=== PATIENT | male | born 1970 | race Caucasian/White ===

== ENCOUNTER 2022-09-30 21:21 | Inpatient (IN) | payer OTHER, SELFPAY ==
[2022-09-30 21:40] VITALS: BP 157/105; PULSE 75; RESP 22; TEMP 36.3; O2SAT 97; BMI 30.7
--- NOTE | 2022-09-30 23:51 | ED_ITS ---
Documented by User: KELLIE Hill 10/01/22 04:40 HPI - Abdominal Pain General: Chief Complaint: Abdominal Pain Stated Complaint: n/v, abd pain Time Seen by Provider: 09/30/22 23:42 Source: patient Mode of arrival: ambulatory Limitations: no limitations History of Present Illness: Patient presents to the emergency department today accompanied by family for evaluation treatment of generalized abdominal pain, nausea, vomiting, and diarrhea. Patient states he had vomiting and diarrhea which started yesterday but did not have any significant abdominal pains. P atient states that starting today he has had abdominal bloating and increased abdominal pains. Patient has continued to have vomiting and diarrhea which he describes as a liquid stool. Patient has vomited as recently as just prior to being roomed. He is unaware of any fevers. No upper respiratory symptoms of sore throat, cough, or congestion to report. Patient's indicates that they have had some at home with a couple episodes of diarrhea and some with a couple episodes of vomiting but, none as severe as the patient. Patient attempted some food earlier today but states he had vomiting. He tolerates water off and on. Patient reports he still has his gallbladder and his appendix. Associated Symptoms: Reports bloating, diarrhea, nausea and vomiting Review of Systems General: Reports: 10 or more systems reviewed and unremarkable except in HPI and below GI: Reports: abdominal pain, nausea, vomiting, diarrhea and bloating [facility] ED PFSH: Medical History (Updated 10/01/22 @ 15:03 by Gabriel Manuel DO) No pertinent past medical history Surgical History (Updated 10/01/22 @ 12:01 by Horace Beth MD) No pertinent past surgical history Family History (Updated 10/01/22 @ 12:01 by Horace Beth MD) Denies family history of Cancer Social History (Updated 10/01/22 @ 12:01 by Horace Beth MD) Smoking and tobacco status: never smoked Alcohol intake: current Alcohol intake frequency: holidays/special occasions only Substance/Drug Use: never Household members: spouse Physical Exam Const: COMMON NORMALS: patient oriented x3 and alert; apparent distress (Patient is obviously uncomfortable and in pain) HENMT: COMMON NORMALS: normocephalic, atraumatic, hearing grossly normal b ilaterally and moist oral mucous membranes HEAD & SCALP: normocephalic and atraumatic Eye: COMMON NORMALS: Equal, round and reactive pupils present, EOMs intact bilaterally and conjunctivae normal CONJUNCTIVA: Yes conjunctivae normal PUPIL: Yes Equal, round and reactive pupils present Neck/C-Spine: COMMON NORMALS: full ROM and no JVD Lymph: LYMPHATIC: no lymphadenopathy noted Resp: COMMON NORMALS: normal respiratory effort, No retractions, No use of accessory muscles and clear to auscultation bilaterally AUSCULTATION: clear to auscultation bilaterally Cardio: COMMON NORMALS: no JVD, regular rate and regular rhythm RATE: regular rate RHYTHM: regular rhythm GI: OTHER: Patient has minimal to no bowel sounds. Patient's abdomen is extremely bloated. It is firm on palpation and tender in all quadrants and in the periumbilical region. : COMMON NORMALS: Yes no CVA tenderness BLADDER/KIDNEY EXAM: Yes no CVA tenderness Back/Pelvis: COMMON NORMALS: no CVA tenderness, no thoracic nor lumbar tenderness and thoraco-lumbar ROM normal Extremity: COMMON NORMALS: normal to inspection, full ROM and capillary refill normal Neuro: COMMON NORMALS: patient oriented x3 SENSORIUM/ORIENTATION: Yes alert Psych: COMMON NORMALS: mental status grossly normal, Normal thought process present, cooperative, normal affect and activity/motor behavior normal THOU GHT PROCESS: Normal thought process present Skin: COMMON NORMALS: no rashes or lesions noted and no wounds GENERAL SKIN EXAM: no rashes or lesions noted Course Vital Signs: Vital signs: Vital Signs Temperature 98.9 F 10/01/22 11:52 Pulse Rate 103 H 10/01/22 11:52 Respiratory Rate 15 10/01/22 11:52 Blood Pressure 158/94 10/01/22 11:52 Pulse Oximetry 93 10/01/22 11:52 Oxygen Delivery Me thod 10/01/22 08:09 MDM - Abdominal Pain Medical Decision Making Basic labs ordered based off of patient complaints however, immediately after seeing patient at bedside, I did go ahead and order the CT examination. Patient's abdomen is extremely bloated and firm. Patient looks extremely uncomfortable. Lab work is otherwise unremarkable however, CT examination shows concerns for small bowel obstruction. I did discuss with Dr. Manuel and we discussed admission. Patient notified of these findings and told of the pending NG tube placement and admission. We called hospitalist services however, patient has no documented active problems or active home medications and was considered more of a surgical case. I did reach out and speak with general surgery on-call however, he believes the patient could be treated with IV antibiotics and be brought on as a consult. Dr. Manuel has agreed to facilitate the coordination of getting the patient admitted to the proper services at this time. Orders were placed to start ciprofloxacin and Flagyl here in the emergency department. This was at the recommendation of general surgery. At this time, care transition to Dr. Manuel. Differential Diagnosis Likely abdominal pain, acute appendicitis, constipation, diverticulitis, gastroenteritis, pancreatitis and small bowel obstruction Lab Data 09/30/22 23:59 09/30/22 23:59 Labs/Radiology: Radiology Impressions Chest X-Ray 10/01/22 03:24 IMPRESSION: 1. Nasogastric tube, as noted above. 2. Small lung volumes with minimal accentuation of the pulmonary vascularity. No confluent infiltrates in the lungs. Abdomen/Pelvis CT 10/01/22 23:50 IMPRESSION: 1. Multiple dilated small bowel loops measuring up to 3.9 cm with fluid levels consistent with an obstruction, potentially high-grade with a possible transition point in the right abdomen. 2. Cardiomegaly. 3. Small amount of nonspecific fluid in the pelvis. Laboratory Results WBC 11.4 10^3/uL (4.0-10.0) H 09/30/22 23:59 RBC 5.70 10^6/uL (4.1-5.3) H 09/30/22 23:59 Hgb 17.2 g/dL (11.7-16.6) H 09/30/22 23:59 Hct 50.2 % (42.0-52.0) 09/30/22 23:59 MCV 88.1 fl (80-94) 09/30/22 23:59 MCH 30.2 pg (28.0-34.0) 09/30/22 23:59 MCHC 34.3 g/dL (30.0-36.0) 09/30/22 23:59 RDW 13.2 % (12.1-15.1) 09/30/22 23:59 Plt Count 258 10^3/cmm (130-400) 09/30/22 23:59 MPV 10.2 fL (7.4-10.4) 09/30/22 23:59 Neut % (Auto) 81.5 % 09/30/22 23:59 Lymph % (Auto) 10.6 % 09/30/22 23:59 [place] % (Auto) 6.5 % 09/30/22 23:59 Eos % (Auto) 0.2 % 09/30/22 23:59 Baso % (Auto) 0.4 % 09/30/22 23:59 Neut # (Auto) 9.28 10^3/uL (1.8-7.7) H 09/30/22 23:59 Lymph # (Auto) 1.2 10^3/uL (0.8-4.8) 09/30/22 23:59 [place] # (Auto) 0.7 10^3/uL (0.2-0.9) 09/30/22 23:59 Eos # (Auto) 0.0 10^3/uL (0.0-0.8) 09/30/22 23:59 Baso # (Auto) 0.0 10^3/uL (0.0-0.1) 09/30/22 23:59 Nucleated RBC % (auto) 0 % 09/30/22 23:59 Nucleated RBCs # 0.0 /100WBC 09/30/22 23:59 Sodium 133 mmol/L (136-145) L 09/30/22 23:59 Potassium 4.2 mmol/L (3.5-5.1) 09/30/22 23:59 Chloride 96 mmol/L (98-107) L 09/30/22 23:59 Carbon Dioxide 24 mmol/L (22-29) 09/30/22 23:59 Anion Gap 17.2 (5-19) 09/30/22 23:59 BUN 20 mg/dL (6-20) 09/30/22 23:59 Creatinine 0.7 mg/dL (0.7-1.2) 09/30/22 23:59 GFR Calculation 119.9 mL/min (90-130) 09/30/22 23:59 Glucose 156 mg/dL (65-115) H 09/30/22 23:59 Calculated Osmolality 282 mOsm/kg (285-295) L 09/30/22 23:59 Calcium 9.7 mg/dL (8.5-10.5) 09/30/22 23:59 Total Bilirubin 0.4 mg/dL (0.15-1.2) 09/30/22 23:59 AST 18 U/L (0-40) 09/30/22 23:59 ALT 30 U/L (0-41) 09/30/22 23:59 Alkaline Phosphatase 126 U/L (40-130) 09/30/22 23:59 Total Protein 8.5 g/dL (6.6-8.7) 09/30/22 23:59 Albumin 4.8 g/dL (3.5-5.2) 09/30/22 23:59 Globulin 3.7 g/dL (1.3-4.6) 09/30/22 23:59 Lipase 15 U/L (13-60) 09/30/22 23:59 Urine Color Yellow (Yellow) 10/01/22 01:44 Urine Appearance Clear (CLEAR) 10/01/22 01:44 Urine pH 5 (5-7) 10/01/22 01:44 Ur Specific Edgar 1.020 (1.005-1.030) 10/01/22 01:44 Urine Protein 3+ (Negative) H 10/01/22 01:44 Urine Glucose (UA) Norm (Normal) 10/01/22 01:44 Urine Ketones 1+ (Negative) H 10/01/22 01:44 Urine Blood Neg (Negative) 10/01/22 01:44 Urine Nitrate Negative (Negative) 10/01/22 01:44 Urine Bilirubin Neg (Negative) 10/01/22 01:44 Urine Urobilinogen Norm mg/dL (Negative) 10/01/22 01:44 Ur Leukocyte Esterase Trace (Negative) H 10/01/22 01:44 Urine RBC 0-4 /hpf (0-2) H 10/01/22 01:44 Urine WBC 0-4 /hpf (0-5) H 10/01/22 01:44 Ur Squamous Epith Cells 0-4 /hpf (0-5) H 10/01/22 01:44 Calcium Oxalate Crystal 5-10 /hpf H 10/01/22 01:44 Amorphous Sediment Not Reportable 10/01/22 01:44 Urine Bacteria Trace /hpf (NONE) 10/01/22 01:44 Discharge Plan Discharge Patient Disposition: Admitted As Inpatient Admit Provider: Urmila Gambino Clinical Impression: Small bowel obstruction Condition: Stable Sign Out Sign Out Data: Patient Sign Out occurred on 10/01/22 at 06:37. Patient's care was discussed, and care was transferred from KELLIE Hill to Gabriel Manuel DO. Sign Out Comment: admit pending for SBO Last updated by Minda Abbott PA at 10/01/22 04:41 Coding Level of Care Code ED Tea Tree Farmer for Chg Fwd Exam Comprehensive Documented by User: Gabriel Manuel DO 10/01/22 15:03 HPI - Abdominal Pain General: Chief Complaint: Abdominal Pain Stated Complaint: n/v, abd pain Time Seen by Provider: 09/30/22 23:42 PFSH ED PFSH: Medical History (Updated 10/01/22 @ 15:03 by Gabriel Manuel DO) No pertinent past medical history Surgical History (Updated 10/01/22 @ 12:01 by Horace Beth MD) No pertinent past surgical history Family History (Updated 10/01/22 @ 12:01 by Horace Beth MD) Denies family history of Cancer Social History (Updated 10/01/22 @ 12:01 by Horace Beth MD) Smoking and tobacco status: never smoked Alcohol intake: current Alcohol intake frequency: holidays/special occasions only Substance/Drug Use: never Household members: spouse Course Vital Signs: Vital signs: Vital Signs Temperature 98.9 F 10/01/22 11:52 Pulse Rate 103 H 10/01/22 11:52 Respiratory Rate 15 10/01/22 11:52 Blood Pressure 158/94 10/01/22 11:52 Pulse Oximetry 93 10/01/22 11:52 Oxygen Delivery Me thod 10/01/22 08:09 MDM - Abdominal Pain Medical Decision Making Basic labs ordered based off of patient complaints however, immediately after seeing patient at bedside, I did go ahead and order the CT examination. Patient's abdomen is extremely bloated and firm. Patient looks extremely uncomfortable. Lab work is otherwise unremarkable however, CT examination shows concerns for small bowel obstruction. I did discuss with Dr. Manuel and we discussed admission. Patient notified of these findings and told of the pending NG tube placement and admission. We called hospitalist services however, latoya patton has no documented active problems or active home medications and was considered more of a surgical case. I did reach out and speak with general surgery on-call however, he believes the patient could be treated with IV antibiotics and be brought on as a consult. Dr. Manuel has agreed to facilitate the coordination of getting the patient admitted to the proper services at this time. Orders were placed to start ciprofloxacin and Flagyl here in the emergency department. This was at the recommendation of general surgery. At this time, care transition to Dr. Manuel. Patient was originally seen by Mrs Scar PA-C. I agree with her history, evaluation, and treatment. I spoke with our hospitalist regarding the patient and potential admission. She has graciously agreed to admit the patient with surgical consult. Lab Data 09/30/22 23:59 09/30/22 23:59 Labs/Radiology: Radiology Impressions Chest X-Ray 10/01/22 03:24 IMPRESSION: 1. Nasogastric tube, as noted above. 2. Small lung volumes with minimal accentuation of the pulmonary vascularity. No confluent infiltrates in the lungs. Abdomen/Pelvis CT 10/01/22 23:50
[2022-10-01] VITALS (16 sets, daily range): BP systolic 153–188; BP diastolic 85–124; PULSE 78–103; RESP 15–32; TEMP 36.3–37.2; O2SAT 91–96
[2022-10-01] MEDS: ondansetron 2 mg/ML SDV 2 mL 4 MG IVP ×2 (00:08→03:07)
[2022-10-01] MEDS: sodium chloride 0.9% 1,000 ML 999 ML IV (00:08)
[2022-10-01 00:09] LABS: Basophils % 0.4 %; Eosinophils % 0.2 %; Hematocrit 50.2 % (42.0-52.0); Hemoglobin 17.2 g/dL (11.7-16.6); Lymphocytes # 1.2 10^3/uL (0.8-4.8); Lymphocytes % 10.6 %; Mean Corpuscular HGB Conc 34.3 g/dL (30.0-36.0); Mean Corpuscular Hemoglobin 30.2 pg (28.0-34.0); Mean Corpuscular Volume 88.1 fl (80-94); Mean Platelet Volume 10.2 fL (7.4-10.4); Monocytes # 0.7 10^3/uL (0.2-0.9); Monocytes % 6.5 %; Neutrophils # 9.28 10^3/uL (1.8-7.7); Neutrophils % 81.5 %; Nucleated Red Blood Cells % 0 %; Platelet Count 258 10^3/cmm (130-400); Red Cell Distribution Width 13.2 % (12.1-15.1); White Blood Count 11.4 10^3/uL (4.0-10.0)
[2022-10-01 00:23] LABS: Alanine Aminotransferase 30 U/L (0-41); Albumin Level 4.8 g/dL (3.5-5.2); Alkaline Phosphatase 126 U/L (40-130); Anion Gap 17.2 (5-19); Aspartate Amino Transferase 18 U/L (0-40); Blood Urea Nitrogen 20 mg/dL (6-20); Calcium 9.7 mg/dL (8.5-10.5); Carbon Dioxide 24 mmol/L (22-29); Chloride 96 mmol/L (98-107); Globulin 3.7 g/dL (1.3-4.6); Glomerular Filtration Rate 119.9 mL/min (90-130); Glucose 156 mg/dL (65-115); Lipase 15 U/L (13-60); Osmolality Calculated 282 mOsm/kg (285-295); Potassium 4.2 mmol/L (3.5-5.1); Sodium 133 mmol/L (136-145); Total Bilirubin 0.4 mg/dL (0.15-1.2); Total Protein 8.5 g/dL (6.6-8.7)
[2022-10-01] MEDS: iohexol 350 mg/mL 500 mL Btl (per mL) IV (00:45)
[2022-10-01 02:00] LABS: Add Urine Microscopic? YES; Bilirubin Urine Neg (Negative); Blood Urine Neg (Negative); Glucose Urine UA Norm (Normal); Ketones Urine 1+ (Negative); Leukocyte Esterase Urine Trace (Negative); Nitrate Urine Negative (Negative); Protein Urine 3+ (Negative); RBC Urine 0-4 /hpf (0-2); Urine Appearance Clear (CLEAR); Urine Color Yellow (Yellow); Urobilinogen Urine Norm (Negative); WBC Urine 0-4 /hpf (0-5); pH Urine 5 (5-7)
[2022-10-01 02:01] LABS: Bacteria Urine TRACE /hpf; Squamous Epithelial Cell Urine 0-4 /hpf (0-5)
[2022-10-01] MEDS: cetacaine Spray 5 gm Can 1 SPRAY TOPICAL (03:06)
[2022-10-01] MEDS: fentaNYL 50 mcg/mL INJ 2mL 100 MCG IVP (03:06)
[2022-10-01] MEDS: metroNIDAZOLE IV 500 MG/100 ML PREMIX 100 MG IV ×3 (03:07→20:07)
[2022-10-01] MEDS: ciprofloxacin 400 MG/200 ML PREMIX 200 MG IV ×2 (03:07→13:23)
--- NOTE | 2022-10-01 03:24 | XRR_ITS ---
PROCEDURE INFORMATION: Exam: XR Chest Exam date and time: 10/01/2022 3:44 AM Age: 51 years old Clinical indication: Device placement; Ng tube; Additional info: Post ng tube TECHNIQUE: Imaging protocol: Radiologic exam of the chest. Views: 1 view. COMPARISON: CT abdomen pelvis w con* [id number] 10/01/2022 1:02 AM FINDINGS: Tubes, catheters and devices: Nasogastric tube is seen with distal aspect in the left upper abdominal region. The tip is not visualized on the exam. Lungs: There are small lung volumes with minimal accentuation of the pulmonary vascularity. There are no confluent interstitial or airspace opacities. Pleural spaces: There are no pleural effusions or pneumothorax. Heart/Mediastinum: The heart size is normal. The mediastinal contour is normal. The trachea is in the midline. Bones/joints: No acute abnormalities. XR/XR chest 1V portable [id number] IMPRESSION: 1. Nasogastric tube, as noted above. 2. Small lung volumes with minimal accentuation of the pulmonary vascularity. No confluent infiltrates in the lungs.
--- NOTE | 2022-10-01 06:20 | PM.CONSULT ---
Providers/Reason For Consult Consulting Physician/Specialty*: Benedicto Cabrales MD Reason for Consult*: Concerning for Bowel Obstruction Requesting Physician: MABEL.Minda Abbott Attending Physician: Urmila Gambino MD History of Present Illness History of Present Illness Mr.Jackie Khoury is a 51 year old male presents to the emergency department with 2 days history of nausea and vomiting associated with nonbloody diarrhea. Also generalized abdominal pain associated with bloating that started yesterday. Patient denies any other associated constitutional symptoms in the form of fevers chills or jaundice. Patient reports that his daughter of 27 years of age had the same symptoms but patient reports no history of food poisoning or history of questionable food or drinks. Patient does not give much of history probably he is uncomfortable with NG tube Further work-up in ER showed WBC count of 11.4, hemoglobin 17.2 and platelet counts of 258. Sodium 133, potassium 4.2 and serum creatinine 0.7. Lactic acid is 1.2. CT Abdomen and Pelvis: 1. Multiple dilated small bowel loops measuring up to 3.9 cm with fluid levels consistent with an obstruction, potentially high-grade with a possible transition point in the right abdomen. 2. Cardiomegaly. 3. Small amount of nonspecific fluid in the pelvis. Based on the CT scan findings General surgery was consulted. According to the nursing staff on the floor patient had an NG placed in the ED and 900 mL aspirate were revealed, patient denies any history of abdominal surgeries. Never had this episodes before. Review of Systems General: Reports: 10 or more systems reviewed and unremarkable except in HPI and below Medications/Allergies Allergies Allergy/AdvReac Type Severity Reaction Status Date / Time No Known Allergies Allergy Verified 09/30/22 21:40 Vitals/I&O/Wt Last Vital Signs Temp 97.4 F L 09/30/22 21:40 Pulse 82 10/01/22 05:30 Resp 15 10/01/22 05:30 BP 156/102 10/01/22 05:30 Pulse Ox 91 10/01/22 05:30 O2 Del Method 10/01/22 00:02 09/30/22 09/30/22 10/01/22 14:59 22:59 06:59 Intake Total 300 / 300 Balance 300 / 300 Weight last 48 hrs Weight 220 lb Physical Exam Narrative: Patient is conscious alert oriented X3 NG in place with minimal output Mild to moderate distress BMI 31 Head and neck examination PERRLA no masses no cervical lymphadenopathy no jaundice Cardiac examination audible S1-S2 no murmurs no gallops no arrhythmias Chest is clear bilateral,abscence of Rhonchi or wheezes,no surgical emphysema Abdomen nontender moderately distended soft no organomegaly guarding or rigidity/no signs of peritonitis Hypoactive bowel sounds Extremities no cyanosis no clubbing no edema Data 09/30/22 23:59 09/30/22 23:59 A&P Assessment and plan (1) Small bowel obstruction: After history taking physical examination and reviewing the chart and images of the CT of the abdomen pelvis with my personal interpretation, I do not see a distinct transition point yet definitely the patient does have distended bowel loops, gastroenteritis cannot be ruled out particularly in the absence of any previous abdominal surgeries to explain potential adhesions that could have caused bowel obstruction. And in the presence of household members that had the same symptoms yet milder. IV fluid hydration Strict I's and O NG to low intermittent wall suction Repeated physical examination Stool studies Ciprofloxacin and Flagyl Pharmacologic DVT prophylaxis Assurance and education All questions have been answered and all concerns have been addressed to patient's satisfaction. Consult Attestations Medical Necessity Statement: Per admitting service Coding Level of Care Code Acute Stabilizing Machine Operator for [facility] Fwd Diagnoses Small bowel obstruction K56.609
--- NOTE | 2022-10-01 06:39 | P.HP_ITS ---
Providers/Chief Complaint Admitting Physician: Urmila Gabmino MD Chief Complaint: n/v, abd pain History of Present Illness Keesha Khoury is a 51 year old male with no significant past medical history presenting to the hospital with Medications/Allergies Allergies Allergy/AdvReac Type Severity Reaction Status Date / Time No Known Allergies Allergy Verified 09/30/22 21:40 Vitals/I&O/Wt Last Vital Signs Temp 97.4 F L 09/30/22 21:40 Pulse 82 10/01/22 05:30 Resp 15 10/01/22 05:30 BP 156/102 10/01/22 05:30 Pulse Ox 91 10/01/22 05:30 O2 Del Method 10/01/22 00:02 09/30/22 09/30/22 10/01/22 14:59 22:59 06:59 Intake Total 300 / 300 Balance 300 / 300 Weight last 48 hrs Weight 99.79 kg Data 09/30/22 23:59 09/30/22 23:59 Coding Level of Care Code 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
--- NOTE | 2022-10-01 07:18 | PC.NURSE ---
Dr. Beth notified of patient c/o back pain and blood pressure of 188/124.
[2022-10-01 08:09] LABS: Lactic Sepsis W/Reflex 1.2 mmol/L (0.5-2.2)
[2022-10-01 08:19] LABS: Procalcitonin 0.12 ng/mL (0-0.5)
[2022-10-01] MEDS: pantoprazole 40 mg SDV IVP (10:42)
[2022-10-01] MEDS: sodium chloride 0.9% 1,000 ML 75 ML IV (10:42)
--- NOTE | 2022-10-01 10:52 | PC.CHAP ---
Pastoral Care Encounter/Spiritual Assessment Type of Contact [] Declined airplane tester visit [] Patient/Family/Request visit [] Outpatient visit [] Follow-up visit [] Physician referral [] Code/Alert [x] Routine visit [] Staff referral [] Actively dying [x] Patient sleeping [] Family support [] [] Out of room [] Palliative care [] [] Receiving care in room [] Pre-surgical visit [] Trauma [] Long length of stay [] ICU visit [] Other: Relational/Emotional Strength [] Patient feels connected with others/family/visitors/staff [] Distress [] Loneliness/isolation [] Abandonment Spirituality of Patient [] Person of Deepti [] Attends Taoist of their Deepti [] Believes in Prayer [] Reads Bible or Episcopalian materials [] There are Spiritual issues to be addressed Jitterbug Operator Interventions [] Prayer [] Active listening [] Non-anxious presence [] Spiritual/emotional support [] Crisis/trauma care [] Spiritual counseling [] Bereavement support [] Provided bereavement packet [] Provided Bible/devotional materials [] Provided toy/stuffed animal, coloring book to patient or family member [] Provided Communion [] Anointing/[place] [] Salvation [] Completed spiritual assessment [] Other: Impact on Illness or Injury [] Angry [] Fearful [] Anxious [] Often cries [] Exhaustion [] Unable to work [] Unable to attend uatsdin [] Unable to walk/stand [] Unable to read [] Unable to drive [] Unable to eat/drink [] Unable to sleep [] Unable to be with family [] Patient intubated [] Other: Summary Time spent with patient
--- NOTE | 2022-10-01 11:57 | PM.HP ---
Providers/Chief Complaint Admitting Physician: Urmila Gambino MD Chief Complaint: n/v, abd pain History of Present Illness Keesha Khoury is a 51 year old male without signal past medical history presented with chief complaint of nausea, vomiting abdominal pain. Patient is stating that his symptoms started roughly 2 days ago, his other family members are also suffering with diarrhea, he has not noticed any fever, he was experiencing diarrhea associated with abdominal pain nausea and vomiting. He experienced multiple episodes of emesis, because abdominal pain could not eat much, he has been having diarrhea for last 48 hours. In the ER he was diagnosed with small bowel obstruction General surgery has been consulted, NG tube has been placed, patient had 2 bowel movements in the hospital, passing gas, pain has subsided with Dilaudid. Review of Systems Const: Denies: chills Eyes: Denies: change in vision ENMT: Denies: throat pain Card: Denies: chest pain Resp: Denies: dyspnea GI: Reports: abdominal pain, nausea and diarrhea : Denies: urinary dribbling Musc: Denies: neck pain Skin/Breast: Denies: rash or changes in skin color Neuro: Denies: headache(s) Psych: Reports: anxiety Endo: Denies: polyuria John/Lymph: Denies: easy bruising All/Imm: Denies: urticaria Medications/Allergies Home Medications Medication Instructions Recorded Confirmed Last Taken Type triamcinolone acetonide 0.1 % 1 applic topical BID PRN Rash 10/01/22 10/01/22 Unknown History topical cream Allergies Allergy/AdvReac Type Severity Reaction Status Date / Time No Known Allergies Allergy Verified 09/30/22 21:40 PFSH Acute PFSH: Medical History (Updated 10/01/22 @ 12:01 by Horace Beth MD) No pertinent past medical history Surgical History (Updated 10/01/22 @ 12:01 by Horace Beth MD) No pertinent past surgical history Family History (Updated 10/01/22 @ 12:01 by Horace Beth MD) Denies family history of Cancer Social History (Updated 10/01/22 @ 12:01 by Horace Beth MD) Smoking and tobacco status: never smoked Alcohol intake: current Alcohol intake frequency: holidays/special occasions only Substance/Drug Use: never Household members: spouse Vitals/I&O/Wt Last Vital Signs Temp 98.9 F 10/01/22 11:52 Pulse 103 H 10/01/22 11:52 Resp 15 10/01/22 11:52 BP 158/94 10/01/22 11:52 Pulse Ox 93 10/01/22 11:52 O2 Del Method 10/01/22 06:40 09/30/22 10/01/22 10/01/22 22:59 06:59 14:59 Intake Total 300 / 300 Balance 300 / 300 Weight last 48 hrs Weight 99.79 kg Physical Exam Narrative: Patient's skin is flushed In distress because of NG tube Awake and alert Nonfocal neuro exam Abdomen soft, bowel sounds hyperactive Patient looks dehydrated S1, S2 Second sinus tachycardia Hypertension Nonfocal neuro exam Currently on room air Data 09/30/22 23:59 09/30/22 23:59 Micro: Microbiology 10/01/22 07:40 Blood Culture - Preliminary Blood SPECIMEN COLLECTED 10/01/22 07:29 Blood Culture - Preliminary Blood SPECIMEN COLLECTED A&P Assessment and plan (1) Dehydration: (2) Small bowel obstruction: Plan Small bowel obstruction Gastroenteritis? Appreciate general surgery recommendations NG tube ordered and suction Continue ciprofloxacin and Flagyl I would add D5 LR Severe dehydration with hemoconcentration N.p.o. DVT prophylaxis with heparin Active bowel sounds, 2 bowel movements today He has been given okay to try ice chips from general surgery Full code No previous medical or surgical history No family history of colon cancer He is a tier truck driver by profession Attestations Medical Necessity Statement*: Continue medical management Time Spent in Patient Care: 40 Coding Level of Care Code Acute Separator Operator Shellfish Meats for [facility] Fwd Diagnoses Dehydration E86.0 Small bowel obstruction K56.609
[2022-10-01] MEDS: hyDRALAzine 20 mg/mL INJ 1 mL 10 MG IVP (13:20)
[2022-10-01] MEDS: dextrose 5%-lactated ringers 1,000 ML 75 ML IV (16:33)
[2022-10-01] MEDS: heparin 5,000 unit/mL INJ 1 mL 5000 UNIT SUBCUT (20:07)
--- NOTE | 2022-10-01 23:50 | CTR_ITS ---
PROCEDURE INFORMATION: Exam: CT Abdomen And Pelvis With Contrast Exam date and time: 10/01/2022 1:02 AM Age: 51 years old Clinical indication: Abdominal tenderness and bloating and nausea and vomiting; Additional info: Abd pain, vomiting, diarrhea, abdomen is firm, bloated TECHNIQUE: Imaging protocol: Computed tomography of the abdomen and pelvis with contrast. Radiation optimization: All CT scans at this facility use at least one of these dose optimization techniques: automated exposure control; mA and/or kV adjustment per patient size (includes targeted exams where dose is matched to clinical indication); or iterative reconstruction. Contrast material: OMNI 350; Contrast volume: 95 ml; Contrast route: INTRAVENOUS (IV); COMPARISON: No relevant prior studies available. RADIATION DOSE METRICS: Total DLP (mGy-cm): 2188.66 FINDINGS: Heart: Cardiomegaly. Liver: Normal. No mass. Gallbladder and bile ducts: Normal. No calcified stones. No ductal dilation. Pancreas: Normal. No ductal dilation. Spleen: Normal. No splenomegaly. Adrenal glands: Normal. No mass. Kidneys and ureters: Normal. No hydronephrosis. Stomach and bowel: Multiple dilated small bowel loops measuring up to 3.9 cm with fluid levels consistent with an obstruction, potentially high-grade with a possible transition point in the right abdomen. Appendix: No evidence of appendicitis. Intraperitoneal space: Small amount of nonspecific fluid in the pelvis. Vasculature: Unremarkable. No abdominal aortic aneurysm. Lymph nodes: Unremarkable. No enlarged lymph nodes. Urinary bladder: Unremarkable as visualized. Reproductive: Unremarkable as visualized. Bones/joints: Unremarkable. No acute fracture. Soft tissues: Unremarkable. CT/CT abdomen pelvis w con* [id number] IMPRESSION: 1. Multiple dilated small bowel loops measuring up to 3.9 cm with fluid levels consistent with an obstruction, potentially high-grade with a possible transition point in the right abdomen. 2. Cardiomegaly. 3. Small amount of nonspecific fluid in the pelvis.
[2022-10-02] MEDS: ciprofloxacin 400 MG/200 ML PREMIX 200 MG IV ×2 (02:10→15:26)
[2022-10-02 04:00] VITALS: BP 146/93; PULSE 84; RESP 16; TEMP 37.1; O2SAT 93
[2022-10-02 04:19] LABS: Basophils % 0.4 %; Eosinophils # 0.1 10^3/uL (0.0-0.8); Eosinophils % 1.6 %; Hematocrit 45.7 % (42.0-52.0); Hemoglobin 15.2 g/dL (11.7-16.6); Lymphocytes # 1.9 10^3/uL (0.8-4.8); Lymphocytes % 21.6 %; Mean Corpuscular HGB Conc 33.3 g/dL (30.0-36.0); Mean Corpuscular Hemoglobin 29.7 pg (28.0-34.0); Mean Corpuscular Volume 89.4 fl (80-94); Mean Platelet Volume 10.2 fL (7.4-10.4); Monocytes % 10.7 %; Neutrophils # 5.84 10^3/uL (1.8-7.7); Neutrophils % 64.9 %; Nucleated Red Blood Cells % 0 %; Platelet Count 242 10^3/cmm (130-400); Red Blood Count 5.11 10^6/uL (4.1-5.3); Red Cell Distribution Width 13.3 % (12.1-15.1)
[2022-10-02 04:36] LABS: Alanine Aminotransferase 20 U/L (0-41); Albumin Level 3.9 g/dL (3.5-5.2); Alkaline Phosphatase 90 U/L (40-130); Blood Urea Nitrogen 16 mg/dL (6-20); Calcium 8.8 mg/dL (8.5-10.5); Carbon Dioxide 30 mmol/L (22-29); Chloride 99 mmol/L (98-107); Glomerular Filtration Rate 119.9 mL/min (90-130); Glucose 127 mg/dL (65-115); Osmolality Calculated 289 mOsm/kg (285-295); Sodium 138 mmol/L (136-145); Total Bilirubin 0.3 mg/dL (0.15-1.2); Total Protein 6.9 g/dL (6.6-8.7)
[2022-10-02] MEDS: dextrose 5%-lactated ringers 1,000 ML 75 ML IV ×2 (04:37→18:56)
[2022-10-02 04:40] LABS: Anion Gap 12.7 (5-19); Aspartate Amino Transferase 17 U/L (0-40); Potassium 3.7 mmol/L (3.5-5.1)
[2022-10-02] MEDS: metroNIDAZOLE IV 500 MG/100 ML PREMIX 100 MG IV ×3 (04:40→20:21)
--- NOTE | 2022-10-02 06:00 | XR_ITS ---
WS: [id number] KUB, AP view, 10/02/2022 Clinical Data: sbo Comparison: CT abdomen pelvis, 10/01/2022 Findings: No abnormal intraabdominal masses or calcifications are seen. The small bowel loops remain dilated. T here is air and fecal material in the colon. There is a nasogastric tube probably ending in the stoma ch. There are monitor leads on the abdominal wall. XR/XR KUB portable [id number] Impression: No change in small bowel obstruction.
[2022-10-02 08:00] VITALS: BP 143/90; PULSE 81; RESP 16; TEMP 36.9; O2SAT 93
--- NOTE | 2022-10-02 08:22 | PM.PN ---
Subjective Subjective: Patient seen and examined. No further nausea or vomiting. He is passing flatus and had 4 liquid bowel movements overnight. Minimal abdominal pain. He reports that multiple family members are similarly sick Vitals/I&O/Wt Last Vital Signs Temp 98.8 F 10/02/22 04:00 Pulse 84 10/02/22 04:00 Resp 16 10/02/22 04:00 BP 146/93 10/02/22 04:00 Pulse Ox 93 10/02/22 04:00 O2 Del Method 10/02/22 04:00 10/01/22 10/02/22 10/02/22 22:59 06:59 14:59 Intake Total 940 / 1240 1205 / 2445 Output Total 800 / 800 1800 / 2600 150 / 150 Balance 140 / 440 -595 / -155 -150 / -150 Weight last 48 hrs Weight 220 lb Physical Exam Narrative: General: No acute distress, awake alert and oriented x3 Abdomen soft, moderately distended, nontender to palpation, no guarding rebound or masses Data 10/02/22 03:52 10/02/22 03:52 Micro: Microbiology 10/01/22 07:40 Blood Culture - Preliminary Blood NEGATIVE TO DATE 10/01/22 07:29 Blood Culture - Preliminary Blood NEGATIVE TO DATE A&P Assessment and plan (1) Small bowel obstruction: (2) Gastroenteritis: Plan This is likely a viral illness that we will need to pass. Stool studies pending Continue antibiotics Nasogastric tube was discontinued Clear liquid diet No acute surgical intervention Medical management per hospitalist Possibly able to be discharged tomorrow Attestations Medical Necessity Statement*: Patient requires at least 1 more night in the hospital for observation for dietary intake nausea and vomiting Coding Level of Care Code Acute Pediatric Intensive Physician for g Fwd Diagnoses Small bowel obstruction K56.609 Gastroenteritis K52.9
[2022-10-02] MEDS: heparin 5,000 unit/mL INJ 1 mL 5000 UNIT SUBCUT ×2 (08:53→20:21)
[2022-10-02] MEDS: pantoprazole 40 mg SDV IVP (08:53)
[2022-10-02] MEDS: ketorolac 30 mg/mL INJ 15 MG IVP (08:53)
[2022-10-02] MEDS: acetaminophen 325 mg Tablet PO (08:54)
--- NOTE | 2022-10-02 11:19 | P.PN_ITS ---
Subjective Subjective: NG tube has removed patient tolerating liquid diet Multiple bowel movements yesterday Patient is passing flatus today Tolerating clear liquid diet, no emesis no abdominal pain \ Vitals/I&O/Wt Last Vital Signs Temp 98.4 F 10/02/22 08:00 Pulse 81 10/02/22 08:00 Resp 16 10/02/22 08:00 BP 143/90 10/02/22 08:00 Pulse Ox 93 10/02/22 08:00 O2 Del Method 10/02/22 04:00 10/01/22 10/02/22 10/02/22 22:59 06:59 14:59 Intake Total 940 / 1240 1205 / 2445 450 / 450 Output Total 800 / 800 1800 / 2600 150 / 150 Balance 140 / 440 -595 / -155 300 / 300 Weight last 48 hrs Weight 99.79 kg Physical Exam Narrative: Patient is looking much more hydrated today Awake and alert Skin is not flushed Abdomen soft nontender Bowel sound present Awake and alert Doing well on room air Signs of dehydration improved EOMI, PERRLA Data 10/02/22 03:52 10/02/22 03:52 Micro: Microbiology 10/01/22 07:40 Blood Culture - Preliminary Blood NEGATIVE TO DATE 10/01/22 07:29 Blood Culture - Preliminary Blood NEGATIVE TO DATE A&P Assessment and plan (1) Gastroenteritis: (2) Small bowel obstruction: (3) Dehydration: Plan SBO Gastroenteritis Continue antibiotics NG tube has been removed Plan to discharge him tomorrow if patient is tolerating his diet He is passing flatus, having bowel movement, appreciate general surgery recommendations Patient is full code IV fluids to be continued until he is able to tolerate regular diet Please note KUB has not shown significant change in small bowel dilation, he has active bowel sounds Attestations Medical Necessity Statement*: Continue medical management Time Spent in Patient Care: 40 Coding Level of Care Code Acute [employer] for Chg Fwd Diagnoses Gastroenteritis K52.9 Small bowel obstruction K56.609 Dehydration E86.0
[2022-10-02 12:00] VITALS: BP 126/83; PULSE 79; RESP 17; TEMP 36.6; O2SAT 95
[2022-10-02] MEDS: potassium chloride oral liq 20 mEq/15 mL UDC 40 MEQ PO (12:06)
[2022-10-02 16:00] VITALS: BP 134/84; PULSE 64; RESP 15; TEMP 36.6; O2SAT 93
[2022-10-02 20:00] VITALS: BP 126/78; PULSE 67; RESP 16; TEMP 37.1; O2SAT 94
[2022-10-03] VITALS: BP 123/77; PULSE 66; RESP 15; TEMP 36.9; O2SAT 93
[2022-10-03 04:00] VITALS: BP 123/76; PULSE 63; RESP 15; TEMP 36.8; O2SAT 94
--- NOTE | 2022-10-03 04:00 | XRR_ITS ---
PROCEDURE INFORMATION: Exam: XR Abdomen Exam date and time: 10/03/2022 5:26 AM Age: 51 years old Clinical indication: Abdominal pain; Generalized; Additional info: Sbo, ileus TECHNIQUE: Imaging protocol: Radiologic exam of the abdomen. Views: Frontal supine view of the abdomen. 1 View. COMPARISON: CR XR KUB portable [id number] 10/02/2022 6:49 AM FINDINGS: Gastrointestinal tract: There are multiple loops of dilated fluid and air-filled small bowel which have not significantly changed since previous study. Some air is present in nondilated loops of colon. Bones/joints: Unremarkable. XR/XR KUB portable [id number] IMPRESSION: No significant change in the small bowel dilatation consistent with obstruction.
[2022-10-03] MEDS: ciprofloxacin 400 MG/200 ML PREMIX 200 MG IV (04:11)
[2022-10-03 04:57] LABS: Anion Gap 10.8 (5-19); Blood Urea Nitrogen 14 mg/dL (6-20); Calcium 8.4 mg/dL (8.5-10.5); Carbon Dioxide 29 mmol/L (22-29); Chloride 100 mmol/L (98-107); Glomerular Filtration Rate 119.9 mL/min (90-130); Glucose 112 mg/dL (65-115); Osmolality Calculated 283 mOsm/kg (285-295); Potassium 3.8 mmol/L (3.5-5.1); Sodium 136 mmol/L (136-145)
[2022-10-03] MEDS: metroNIDAZOLE IV 500 MG/100 ML PREMIX 100 MG IV (05:09)
[2022-10-03 08:00] VITALS: BP 125/80; PULSE 61; RESP 16; TEMP 36.6; O2SAT 94
--- NOTE | 2022-10-03 08:51 | P.PN_ITS ---
Subjective Subjective: Patient denies any nausea vomiting or abdominal pain. Multiple bowel movements and passing flatus Vitals/I&O/Wt Last Vital Signs Temp 98.3 F 10/03/22 04:00 Pulse 63 10/03/22 04:00 Resp 15 10/03/22 04:00 BP 123/76 10/03/22 04:00 Pulse Ox 94 10/03/22 04:00 O2 Del Method 10/03/22 04:00 10/02/22 10/03/22 10/03/22 22:59 06:59 14:59 Intake Total 1910 / 2910 1800 / 4710 Balance 1909 / 2760 1800 / 4560 Physical Exam Narrative: General: No acute distress, awake alert and oriented x3 Abdomen soft, mildly distended, nontender to palpation, no guarding rebound or masses Data 10/02/22 03:52 10/03/22 04:06 Micro: Microbiology 10/01/22 07:40 Blood Culture - Preliminary Blood NEGATIVE TO DATE 10/01/22 07:29 Blood Culture - Preliminary Blood NEGATIVE TO DATE A&P Assessment and plan (1) Small bowel obstruction: (2) Gastroenteritis: Plan This is likely a viral illness that we will need to pass. Stool studies pending Continue antibiotics Soft diet No acute surgical intervention Medical management per hospitalist Surgically stable for discharge if tolerating soft diet Attestations Medical Necessity Statement*: Further hospitalization per hospitalist Coding Level of Care Code Acute [employer] Instructor for Chg Fwd Diagnoses Small bowel obstruction K56.609 Gastroenteritis K52.9
[2022-10-03] MEDS: heparin 5,000 unit/mL INJ 1 mL 5000 UNIT SUBCUT (10:23)
[2022-10-03] MEDS: pantoprazole 40 mg SDV IVP (10:24)
--- NOTE | 2022-10-03 11:11 | PM.DCS ---
Discharge Providers Date of Admission: 10/01/22 05:01 Date of Discharge: October 03, 2022 Attending Provider at Admission: Urimla Gambino MD Attending Provider at Discharge: Horace Beth MD Diagnoses at Discharge Discharge Diagnosis (1) Small bowel obstruction: Status: Acute (2) Gastroenteritis: Status: Acute Reason for Visit Reason for Visit: n/v, abd pain Hospital Course Hospital Course 51-year-old male who was admitted to the hospital for concern of small bowel obstruction, his symptoms were consistent with gastroenteritis, CT scan abdomen pelvis was reviewed with general surgeon, no signs of malignancy identified, patient was managed conservatively with NG tube to suction, patient kept having bowel movement on daily basis, NG tube was removed, he tolerated his diet very well, no recurrence of emesis, patient is passing flatus, abdominal exam is benign. Please note his KUB is still showing dilation of small bowel, he was eval by the surgeon Dr. Salamanca who recommended discharging him on 10/03, patient is clinically doing better. He will get ciprofloxacin and Flagyl course for gastroenteritis. Physical Exam Narrative: Patient is well-hydrated Awake and alert Skin is not flushed Abdomen soft nontender Bowel sound present Awake and alert Doing well on room air Signs of dehydration improved EOMI, PERRLA Discharge Data Studies Completed and Pending Completed Studies During Hospitalization Category Date Time Status CT abdomen pelvis w con* [id number] Stat Cat Scan 10/01/22 23:50 Completed XR KUB portable [id number] Routine Exams 10/02/22 06:00 Completed XR KUB portable [id number] Routine Exams 10/03/22 04:00 Completed XR chest 1V portable [id number] Stat Exams 10/01/22 03:24 Completed Pending at discharge Category Date Time Status Blood Culture Stat Lab 10/01/22 07:40 Results Urine Culture Stat Lab 10/01/22 01:44 Results Radiology Impressions Chest X-Ray 10/01/22 03:24 IMPRESSION: 1. Nasogastric tube, as noted above. 2. Small lung volumes with minimal accentuation of the pulmonary vascularity. No confluent infiltrates in the lungs. Abdomen/Pelvis CT 10/01/22 23:50 IMPRESSION: 1. Multiple dilated small bowel loops measuring up to 3.9 cm with fluid levels consistent with an obstruction, potentially high-grade with a possible transition point in the right abdomen. 2. Cardiomegaly. 3. Small amount of nonspecific fluid in the pelvis. KUB X-Ray 10/03/22 04:00 IMPRESSION: No significant change in the small bowel dilatation consistent with obstruction. Laboratory Results WBC 9.0 10^3/uL (4.0-10.0) 10/02/22 03:52 RBC 5.11 10^6/uL (4.1-5.3) 10/02/22 03:52 Hgb 15.2 g/dL (11.7-16.6) 10/02/22 03:52 Hct 45.7 % (42.0-52.0) 10/02/22 03:52 MCV 89.4 fl (80-94) 10/02/22 03:52 MCH 29.7 pg (28.0-34.0) 10/02/22 03:52 MCHC 33.3 g/dL (30.0-36.0) 10/02/22 03:52 RDW 13.3 % (12.1-15.1) 10/02/22 03:52 Plt Count 242 10^3/cmm (130-400) 10/02/22 03:52 MPV 10.2 fL (7.4-10.4) 10/02/22 03:52 Neut % (Auto) 64.9 % 10/02/22 03:52 Lymph % (Auto) 21.6 % 10/02/22 03:52 [place] % (Auto) 10.7 % 10/02/22 03:52 Eos % (Auto) 1.6 % 10/02/22 03:52 Baso % (Auto) 0.4 % 10/02/22 03:52 Neut # (Auto) 5.84 10^3/uL (1.8-7.7) 10/02/22 03:52 Lymph # (Auto) 1.9 10^3/uL (0.8-4.8) 10/02/22 03:52 [place] # (Auto) 1.0 10^3/uL (0.2-0.9) H 10/02/22 03:52 Eos # (Auto) 0.1 10^3/uL (0.0-0.8) 10/02/22 03:52 Baso # (Auto) 0.0 10^3/uL (0.0-0.1) 10/02/22 03:52 Nucleated RBC % (auto) 0 % 10/02/22 03:52 Nucleated RBCs # 0.0 /100WBC 10/02/22 03:52 Sodium 136 mmol/L (136-145) 10/03/22 04:06 Potassium 3.8 mmol/L (3.5-5.1) 10/03/22 04:06 Chloride 100 mmol/L (98-107) 10/03/22 04:06 Carbon Dioxide 29 mmol/L (22-29) 10/03/22 04:06 Anion Gap 10.8 (5-19) 10/03/22 04:06 BUN 14 mg/dL (6-20) 10/03/22 04:06 Creatinine 0.7 mg/dL (0.7-1.2) 10/03/22 04:06 GFR Calculation 119.9 mL/min (90-130) 10/03/22 04:06 Glucose 112 mg/dL (65-115) 10/03/22 04:06 Calculated Osmolality 283 mOsm/kg (285-295) L 10/03/22 04:06 Lactic Acid 1.2 mmol/L (0.5-2.2) 10/01/22 07:29 Calcium 8.4 mg/dL (8.5-10.5) L 10/03/22 04:06 Magnesium 2.0 mg/dL (1.7-2.3) 10/02/22 03:52 Total Bilirubin 0.3 mg/dL (0.15-1.2) 10/02/22 03:52 AST 17 U/L (0-40) 10/02/22 03:52 ALT 20 U/L (0-41) 10/02/22 03:52 Alkaline Phosphatase 90 U/L (40-130) 10/02/22 03:52 Total Protein 6.9 g/dL (6.6-8.7) 10/02/22 03:52 Albumin 3.9 g/dL (3.5-5.2) 10/02/22 03:52 Globulin 3.0 g/dL (1.3-4.6) 10/02/22 03:52 Lipase 15 U/L (13-60) 09/30/22 23:59 Procalcitonin 0.12 ng/mL (0-0.5) 10/01/22 07:29 Urine Color Yellow (Yellow) 10/01/22 01:44 Urine Appearance Clear (CLEAR) 10/01/22 01:44 Urine pH 5 (5-7) 10/01/22 01:44 Ur Specific [place] 1.020 (1.005-1.030) 10/01/22 01:44 Urine Protein 3+ (Negative) H 10/01/22 01:44 Urine Glucose (UA) Norm (Normal) 10/01/22 01:44 Urine Ketones 1+ (Negative) H 10/01/22 01:44 Urine Blood Neg (Negative) 10/01/22 01:44 Urine Nitrate Negative (Negative) 10/01/22 01:44 Urine Bilirubin Neg (Negative) 10/01/22 01:44 Urine Urobilinogen Norm mg/dL (Negative) 10/01/22 01:44 Ur Leukocyte Esterase Trace (Negative) H 10/01/22 01:44 Urine RBC 0-4 /hpf (0-2) H 10/01/22 01:44 Urine WBC 0-4 /hpf (0-5) H 10/01/22 01:44 Ur Squamous Epith Cells 0-4 /hpf (0-5) H 10/01/22 01:44 Calcium Oxalate Crystal 5-10 /hpf H 10/01/22 01:44 Amorphous Sediment Not Reportable 10/01/22 01:44 Urine Bacteria Trace /hpf (NONE) 10/01/22 01:44 Vitals Last Vital Signs Temp 97.9 F 10/03/22 08:00 Pulse 61 10/03/22 08:00 Resp 16 10/03/22 08:00 BP 125/80 10/03/22 08:00 Pulse Ox 94 10/03/22 08:00 O2 Del Method 10/03/22 04:00 Discharge Plan Discharge Patient Disposition: Home Condition: Stable Prescriptions: New ciprofloxacin HCl 750 mg tablet 750 mg PO BIDWMEAL 3 Days Qty: 6 0RF metronidazole 500 mg tablet 500 mg PO Q8H 3 Days Qty: 9 0RF magnesium citrate 100 mg tablet 100 mg PO DAILY Qty: 5 0RF Discontinued triamcinolone acetonide 0.1 % cream 1 applic TOPICAL BID PRN (Reason: Rash) Discharge Orders: Discharge Order (Routine); Ordered 10/03/22 Ordered By: Horace Beth Referrals: Marla Osborne MD [Staff Physician] - 10/09/22 3:30 pm (Patient will need a new patient appointment @ [facility] to establish a PCP) Discharge Diet: Soft Mechanical Patient Instructions: Ciprofloxacin (By mouth), Metronidazole (By mouth), Magnesium Citrate (By mouth), Bowel Obstruction (GEN), Opioid Safety Discharge Attestations Time Spent in Discharge Care*: less than 30 min Quality Metrics Clinical Quality Measures [ No reported AMI, CVA or VTE this stay] Coding Level of Care Code Acute g [facility] note Diagnoses Small bowel obstruction K56.609 Gastroenteritis K52.9
[2022-10-03 12:00] VITALS: BP 129/80; PULSE 70; RESP 18; O2SAT 95
[2022-10-03 13:56] VITALS: BP 129/80; PULSE 70; RESP 18; O2SAT 95
== END 2022-10-03 13:45 | disposition home or self-care (01) | DRG 392 ==
LOC: ER 23:54 → MEDSURG 10-01 05:24
PROVIDERS: Physician Assistant; Admitting Provider Internal Medicine; Emergency Provider Emergency Medicine; Visit Provider Internal Medicine
DX: A08.4 Viral intestinal infection, unspecified (principal); K56.609 Unspecified intestinal obstruction, unspecified as to partial versus complete obstruction; E86.0 Dehydration
CPT/HCPCS: 36415; 71045; 74018; 74177; 80048; 80053; 81001; 83605; 83690; 83735; 84145; 85025; 87040; 87086; 94664; 96365; 96367; 96372; 96375; 96376; 99285; C9113; J0360; J0744; J1644; J1885; J2405; J3010; J3490; J7030; J7121; Q9967

== ENCOUNTER → 2025-06-25 09:44 | Outpatient (BNVA) | payer OTHER, SELFPAY | PROVIDERS: PCP Family Medicine; Visit Provider Family Medicine | DX: Z13.6 Encounter for screening for cardiovascular disorders (principal); Z12.5 Encounter for screening for malignant neoplasm of prostate | CPT/HCPCS: 80053; 80061; 83036; 84153; 84439; 84443; 85025 ==